=== PATIENT | male | born 1940 | race African-American/Black ===

== ENCOUNTER 2017-07-29 17:47 | Inpatient (IN) | payer MEDICARE, MEDICAID ==
[~2017-07-29] VITALS: Ht 175.3 cm; Wt 68.0 kg
[~2017-07-29 17:47] MED LIST: ATOR20TA PO; DOCU-150 PO; LOSA50TA3 PO
[2017-07-29 18:25] LABS: BASOPHILS % 0.5 % (0.0-2.0); EOSINOPHILS % 1.7 % (0.0-5.0); HEMATOCRIT. 50.6 % (42.0-52.0); HEMOGLOBIN. 17.3 g/dL (14.0-18.0); LYMPHOCYTES % 24.9 % (20.0-50.0); MEAN CORPUSCULAR HEMOGLOBIN 32.8 pg (28.0-32.0); MEAN CORPUSCULAR VOLUME 96.3 fL (80.0-94.0); MEAN PLATELET VOLUME 8.6 fl (7.4-10.4); MONOCYTES % 11.9 % (2.0-8.0); PLATELET 164 x1000/uL (130-400); RED BLOOD CELL COUNT 5.26 mill/uL (4.7-6.1); RED CELL DISTRIBUTION WIDTH 14.1 % (11.6-14.6)
[2017-07-29 18:32] LABS: INR 1.3; PROTHROMBIN TIME 13.4 sec (9.4-11.6)
[2017-07-29] MEDS ORDERED: SODIUM CHLORIDE 0.9% 500 ML IV ONE (18:32)
[2017-07-29 18:42] LABS: CHLORIDE 107 mEq/L (98-107); ETHANOL BLOOD < 10 mg/dL; TROPONIN I < 0.02 ng/mL (0.00-0.04)
[2017-07-29] MEDS ORDERED: LABETALOL 5MG/ML SYR 20 MG/4 ML SYRINGE IV NR (19:04)
[2017-07-29 20:00] LABS: CLARITY URINE CLOUDY (CLEAR); COLOR URINE YELLOW (YELLOW); KETONES URINE TRACE (NEGATIVE); LEUKOCYTE ESTERASE URINE TRACE (NEGATIVE); NITRITE URINE NEGATIVE (NEGATIVE); OCCULT BLOOD URINE NEGATIVE (NEGATIVE); PROTEIN URINE TRACE (NEGATIVE)
[2017-07-29 20:03] LABS: *AMPHETAMINES SCREEN URINE NEGATIVE (NEGATIVE); *BARBITURATES SCREEN URINE NEGATIVE (NEGATIVE); *BENZODIAZEPINES SCREEN URINE NEGATIVE (NEGATIVE); *COCAINE SCREEN URINE NEGATIVE (NEGATIVE); CANNABINOID URINE SCREEN NEGATIVE (NEGATIVE); METHADONE URINE SCREEN NEGATIVE (NEGATIVE); OPIATES URINE SCREEN NEGATIVE (NEGATIVE); PHENCYCLIDINE URINE SCREEN NEGATIVE (NEGATIVE)
[2017-07-29] MEDS ORDERED: CEFTRIAXONE 1 G PREMIX 50 ML IV SCH (20:45)
[2017-07-29] MEDS ORDERED: HYDRALAZINE 20MG/ML VIAL IV ONE (20:45)
[2017-07-29] MEDS ORDERED: MAGNESIUM CITRATE 300ML SOLUTION GT ONE (20:45)
[2017-07-30] VITALS (7 sets, daily range): BP systolic 106–141; BP diastolic 56–96
[2017-07-30] MEDS ORDERED: LACTULOSE 20G/30ML UDC PO PRN (02:45)
[2017-07-30] MEDS ORDERED: LACT10SO6 MT (03:05)
[2017-07-30] MEDS ORDERED: KEPP500 PO (03:05)
[2017-07-30] MEDS: IPRATROPIUM/ALBUTEROL 0.5-3(2.5)MG/3ML NEB HHN SCH ×3 (08:45→19:57)
[2017-07-30] MEDS ORDERED: MULTIVITAMINS,THER W-MINERALS TABLET PO SCH (09:00)
[2017-07-30] MEDS ORDERED: AMLODIPINE 10MG TABLET PO SCH (09:00)
[2017-07-30] MEDS ORDERED: LEVETIRACETAM 500MG TABLET PO SCH (09:00)
[2017-07-30] MEDS ORDERED: LOSARTAN POTASSIUM 100 MG TABLET PO SCH (09:00)
[2017-07-30] MEDS: DEXT 5%/0.45% NACL 1000ML 1,000 ML IV SCH (11:47)
[2017-07-30] MEDS ORDERED: LOSARTAN POTASSIUM 100 MG TABLET GT SCH (12:00)
[2017-07-30] MEDS ORDERED: MULTIVITAMINS,THER W-MINERALS TABLET GT SCH (12:00)
[2017-07-30] MEDS ORDERED: AMLODIPINE 10MG TABLET GT SCH (12:00)
[2017-07-30] MEDS ORDERED: ATORVASTATIN CALCIUM 20MG TABLET PO SCH (21:00)
[2017-07-30] MEDS: DOCUSATE SODIUM 250MG CAPSULE PO SCH (23:02)
[2017-07-30] MEDS: LEVETIRACETAM 500MG TABLET GT SCH (23:02)
[2017-07-30] MEDS: ATORVASTATIN CALCIUM 20MG TABLET GT SCH (23:02)
[2017-07-31] VITALS: BP 133/76
[2017-07-31] MEDS: IPRATROPIUM/ALBUTEROL 0.5-3(2.5)MG/3ML NEB HHN SCH ×4 (00:52→20:40)
[2017-07-31 04:00] VITALS: BP 140/84
[2017-07-31] MEDS: DEXT 5%/0.45% NACL 1000ML 1,000 ML IV SCH ×3 (05:10→21:29)
[2017-07-31 08:00] VITALS: BP 132/81
[2017-07-31] MEDS: MULTIVITAMINS,THER W-MINERALS TABLET GT SCH (09:44)
[2017-07-31] MEDS: LEVETIRACETAM 500MG TABLET GT SCH ×2 (09:44→21:15)
[2017-07-31] MEDS: LOSARTAN POTASSIUM 100 MG TABLET GT SCH (09:45)
[2017-07-31] MEDS: AMLODIPINE 10MG TABLET GT SCH (09:45)
[2017-07-31 12:00] VITALS: BP 132/72
[2017-07-31 16:00] VITALS: BP 133/75
[2017-07-31 20:00] VITALS: BP 131/86
[2017-07-31] MEDS: ATORVASTATIN CALCIUM 20MG TABLET GT SCH (21:15)
[2017-07-31] MEDS: DOCUSATE SODIUM 250MG CAPSULE PO SCH (21:15)
[2017-08-01] VITALS (7 sets, daily range): BP systolic 101–160; BP diastolic 62–92
[2017-08-01] MEDS: IPRATROPIUM/ALBUTEROL 0.5-3(2.5)MG/3ML NEB HHN SCH ×4 (00:34→21:06)
[2017-08-01] MEDS: LEVOFLOXACIN 250MG TABLET GT SCH ×2 (02:11→21:25)
[2017-08-01] MEDS: LOSARTAN POTASSIUM 100 MG TABLET GT SCH (09:20)
[2017-08-01] MEDS: MULTIVITAMINS,THER W-MINERALS TABLET GT SCH (09:21)
[2017-08-01] MEDS: LEVETIRACETAM 500MG TABLET GT SCH ×2 (09:21→21:25)
[2017-08-01] MEDS: AMLODIPINE 10MG TABLET GT SCH (09:21)
[2017-08-01] MEDS: DEXT 5%/0.45% NACL 1000ML 1,000 ML IV SCH (10:15)
[2017-08-01 10:26] LABS: BASOPHILS % 0.6 % (0.0-2.0); EOSINOPHILS % 2.5 % (0.0-5.0); HEMATOCRIT. 48.5 % (42.0-52.0); HEMOGLOBIN. 16.2 g/dL (14.0-18.0); LYMPHOCYTES % 25.6 % (20.0-50.0); MEAN CORPUSCULAR HEMOGLOBIN 32.4 pg (28.0-32.0); MEAN PLATELET VOLUME 9.1 fl (7.4-10.4); MONOCYTES % 13.2 % (2.0-8.0); NEUTROPHILS % 58.1 % (40.0-76.0); PLATELET 165 x1000/uL (130-400); RED CELL DISTRIBUTION WIDTH 14.5 % (11.6-14.6)
[2017-08-01 11:00] LABS: CHLORIDE 107 mEq/L (98-107)
[2017-08-01] MEDS: ATORVASTATIN CALCIUM 20MG TABLET GT SCH (21:25)
[2017-08-01] MEDS: DOCUSATE SODIUM 250MG CAPSULE PO SCH (21:25)
[2017-08-02] VITALS: BP 132/81
[2017-08-02] MEDS: IPRATROPIUM/ALBUTEROL 0.5-3(2.5)MG/3ML NEB HHN SCH ×4 (01:29→21:04)
[2017-08-02 04:00] VITALS: BP 149/77
[2017-08-02 08:00] VITALS: BP 116/67
[2017-08-02] MEDS: MULTIVITAMINS,THER W-MINERALS TABLET GT SCH (09:19)
[2017-08-02] MEDS: LOSARTAN POTASSIUM 100 MG TABLET GT SCH (09:19)
[2017-08-02] MEDS: LEVETIRACETAM 500MG TABLET GT SCH ×2 (09:19→22:11)
[2017-08-02] MEDS: AMLODIPINE 10MG TABLET GT SCH (09:20)
[2017-08-02] MEDS ORDERED: LACTULOSE 20G/30ML UDC PO PRN (09:45)
[2017-08-02 12:00] VITALS: BP 142/83
[2017-08-02] MEDS: ENOXAPARIN 40MG/0.4ML SYR SUBCUT SCH (12:45)
[2017-08-02 16:00] VITALS: BP 158/92
[2017-08-02 16:32] LABS: T4 FREE 1.13 ng/dL (0.76-1.46)
[2017-08-02 16:52] LABS: VITAMIN B12 SERUM 618 pg/mL (211-911)
[2017-08-02 16:53] LABS: FOLIC ACID (FOLATE) SERUM > 20.00 ng/mL (>5.38)
[2017-08-02 20:00] VITALS: BP 101/63
[2017-08-02] MEDS: ATORVASTATIN CALCIUM 20MG TABLET GT SCH (22:10)
[2017-08-02] MEDS: DOCUSATE SODIUM 250MG CAPSULE PO SCH (22:10)
[2017-08-02] MEDS: LEVOFLOXACIN 250MG TABLET GT SCH (22:11)
[2017-08-03] VITALS: BP 113/78
[2017-08-03] MEDS: IPRATROPIUM/ALBUTEROL 0.5-3(2.5)MG/3ML NEB HHN SCH ×4 (02:30→19:57)
[2017-08-03 04:00] VITALS: BP 120/70
[2017-08-03 08:00] VITALS: BP 106/71
[2017-08-03] MEDS: LOSARTAN POTASSIUM 100 MG TABLET GT SCH (09:00)
[2017-08-03] MEDS: AMLODIPINE 10MG TABLET GT SCH (09:00)
[2017-08-03] MEDS: LEVETIRACETAM 500MG TABLET GT SCH ×2 (09:04→21:35)
[2017-08-03] MEDS: MULTIVITAMINS,THER W-MINERALS TABLET GT SCH (09:04)
[2017-08-03] MEDS: ENOXAPARIN 40MG/0.4ML SYR SUBCUT SCH (09:05)
[2017-08-03] MEDS: CLOPIDOGREL 75MG TABLET PO SCH (09:05)
[2017-08-03 12:00] VITALS: BP 126/78
[2017-08-03 16:00] VITALS: BP 117/72
[2017-08-03 20:00] VITALS: BP 129/70
[2017-08-03] MEDS: LEVOFLOXACIN 250MG TABLET GT SCH (21:34)
[2017-08-03] MEDS: DOCUSATE SODIUM 250MG CAPSULE PO SCH (21:34)
[2017-08-03] MEDS: ATORVASTATIN CALCIUM 20MG TABLET GT SCH (21:35)
[2017-08-04] VITALS: BP 128/84
[2017-08-04] MEDS: IPRATROPIUM/ALBUTEROL 0.5-3(2.5)MG/3ML NEB HHN SCH ×4 (00:54→19:42)
[2017-08-04 04:00] VITALS: BP 105/63
[2017-08-04 08:00] VITALS: BP 137/84
[2017-08-04] MEDS: CLOPIDOGREL 75MG TABLET PO SCH (08:41)
[2017-08-04] MEDS: LEVETIRACETAM 500MG TABLET GT SCH ×2 (08:42→21:57)
[2017-08-04] MEDS: LOSARTAN POTASSIUM 100 MG TABLET GT SCH (08:42)
[2017-08-04] MEDS: MULTIVITAMINS,THER W-MINERALS TABLET GT SCH (08:42)
[2017-08-04] MEDS: AMLODIPINE 10MG TABLET GT SCH (08:42)
[2017-08-04] MEDS: ENOXAPARIN 40MG/0.4ML SYR SUBCUT SCH (10:00)
[2017-08-04 12:00] VITALS: BP 128/81
[2017-08-04 16:00] VITALS: BP 127/80
[2017-08-04 20:00] VITALS: BP 124/74
[2017-08-04] MEDS: LEVOFLOXACIN 250MG TABLET GT SCH (21:57)
[2017-08-04] MEDS: ATORVASTATIN CALCIUM 20MG TABLET GT SCH (21:57)
[2017-08-04] MEDS: DOCUSATE SODIUM 250MG CAPSULE PO SCH (21:57)
[2017-08-05] MEDS: IPRATROPIUM/ALBUTEROL 0.5-3(2.5)MG/3ML NEB HHN SCH ×3 (01:34→13:09)
[2017-08-05 04:00] VITALS: BP 120/74
[2017-08-05 08:00] VITALS: BP 96/39
[2017-08-05] MEDS: AMLODIPINE 10MG TABLET GT SCH (09:00)
[2017-08-05] MEDS: LOSARTAN POTASSIUM 100 MG TABLET GT SCH (09:00)
[2017-08-05] MEDS: CLOPIDOGREL 75MG TABLET PO SCH (09:39)
[2017-08-05] MEDS: ENOXAPARIN 40MG/0.4ML SYR SUBCUT SCH (09:39)
[2017-08-05] MEDS: MULTIVITAMINS,THER W-MINERALS TABLET GT SCH (09:39)
[2017-08-05] MEDS: LEVETIRACETAM 500MG TABLET GT SCH (09:41)
[2017-08-05] MEDS ORDERED: LOSA100T14 PO (11:47)
[2017-08-05] MEDS ORDERED: CLOP75TA16 GT (11:54)
[2017-08-05] MEDS ORDERED: AMLO10TA4 GT (11:56)
[2017-08-05 12:00] VITALS: BP 107/64
[2017-08-05 16:12] VITALS: BP 112/78
== END 2017-08-05 17:30 | disposition home or self-care (01) | DRG 64 ==
LOC: ER 17:47 → 6EST 21:04 → EDBEDREQ 21:07 → EDBEDREQTM 21:07 → EDBEDREQSVC 21:08 → ENRESERV 22:11
PROVIDERS: ADMIT Internal Medicine; ATTEND Internal Medicine
DX: I63.9 Cerebral infarction, unspecified (principal); G93.40 Encephalopathy, unspecified; L89.90 Pressure ulcer of unspecified site, unspecified stage; I69.954 Hemiplegia and hemiparesis following unspecified cerebrovascular disease affecting left non-dominant side; N39.0 Urinary tract infection, site not specified; F03.90 Unspecified dementia, unspecified severity, without behavioral disturbance, psychotic disturbance, mood disturbance, and anxiety; J44.9 Chronic obstructive pulmonary disease, unspecified; G40.909 Epilepsy, unspecified, not intractable, without status epilepticus; I11.9 Hypertensive heart disease without heart failure; E78.00 Pure hypercholesterolemia, unspecified; F32.9 Major depressive disorder, single episode, unspecified; M51.36 Other intervertebral disc degeneration, lumbar region; N40.0 Benign prostatic hyperplasia without lower urinary tract symptoms; Z93.1 Gastrostomy status; Z79.899 Other long term (current) drug therapy; Z99.3 Dependence on wheelchair
CPT/HCPCS: 36415; 51702; 70450; 70544; 70551; 71045; 74018; 74176; 80048; 80053; 80061; 80305; 81003; 82607; 82746; 82962; 83036; 83605; 83690; 83880; 84439; 84443; 84481; 84484; 85025; 85610; 87086; 92523; 92610; 93005; 93306; 93880; 93970; 94640; 96361; 96365; 96375; 97162; 97167; 99285; G0482; J0360; J0696; J1650; J3490; J7040; J7060; J7620; A4315

== ENCOUNTER 2017-08-20 09:39 | Inpatient (IN) | payer MEDICARE, MEDICAID ==
[~2017-08-20] VITALS: Ht 180.3 cm; Wt 89.8 kg
[2017-08-20] VITALS (43 sets, daily range): BP systolic 76–165; BP diastolic 42–100
[~2017-08-20 09:39] MED LIST changes: +AMLO10TA4 GT; +CLOP75TA16 GT; -DOCU-150 PO; +KEPP500 PO; +LOSA100T14 PO; -LOSA50TA3 PO
[2017-08-20] MEDS ORDERED: NOREPINEPHRINE 4 MG in DEXT 5% WATER 250 ML IV STA ×2 (09:51→11:42)
[2017-08-20] MEDS ORDERED: ACETAMINOPHEN 650MG SUPP PR STA (09:51)
[2017-08-20] MEDS ORDERED: SODIUM CHLORIDE 0.9% 1,000 ML IV ONE ×3 (09:51→12:10)
[2017-08-20] MEDS ORDERED: LEVOFLOXACIN 750MG PREMIX 150 ML IV ONE (10:00)
[2017-08-20] MEDS ORDERED: PIPERACILLIN/TAZ 3.375G PREMIX 50 ML IV ONE (10:00)
[2017-08-20] MEDS ORDERED: SUCCINYLCHOLINE CHLORIDE 200MG/10ML VIAL IV ONE ×2 (10:15→11:32)
[2017-08-20] MEDS ORDERED: ETOMIDATE 2MG/ML 10ML VIAL IV ONE ×2 (10:15→11:32)
[2017-08-20] MEDS ORDERED: PROPOFOL 10MG/ML 100ML 100 ML IV ONE (10:15)
[2017-08-20] MEDS ORDERED: MIDAZOLAM HCL 50 MG in DEXTROSE 5% WATER 40 ML IV ONE (10:15)
[2017-08-20 10:24] LABS: BG BASE EXCESS -10.1 mmol/L (-2.0-2.0); BG CARBOXYHEMOGLOBIN 0.6 % (0.5-1.5); BG DEOXYHEMOGLOBIN 2.8 % (0.0-5.0); BG HCO3 ACT 19.2 mmol/L (22.0-26.0); BG METHEMOGLOBIN 0.7 % (0.0-1.5); BG OXYGEN SATURATION 97.2 % (92.0-98.5); BG OXYHEMOGLOBIN 95.9 % (94.0-97.0); BG PCO2 55.6 mmHg (35.0-45.0); BG PH 7.156 (7.350-7.450); BG PO2 117.8 mmHg (75.0-100.0); BG SAMPLE SITE RIGHT RADIAL; BG TIDAL VOLUME(mL) 450 mL; BG TOTAL HEMOGLOBIN 16.1 g/dL (12.0-18.0); BG VENT MODE VENT - A/C; BG VENT RATE 14 set
[2017-08-20 10:26] LABS: BASOPHILS % 0.2 % (0.0-2.0); HEMATOCRIT. 48.4 % (42.0-52.0); HEMOGLOBIN. 15.6 g/dL (14.0-18.0); LYMPHOCYTES % 7.9 % (20.0-50.0); MEAN CORPUSCULAR HEMOGLOBIN 32.3 pg (28.0-32.0); MEAN CORPUSCULAR VOLUME 100.5 fL (80.0-94.0); MEAN PLATELET VOLUME 8.9 fl (7.4-10.4); MONOCYTES % 5.9 % (2.0-8.0); PLATELET 386 x1000/uL (130-400); RED BLOOD CELL COUNT 4.82 mill/uL (4.7-6.1)
[2017-08-20 10:33] LABS: INR 1.4; PARTIAL THROMBOPLASTIN TIME 26.3 sec (23.4-31.0); PROTHROMBIN TIME 14.5 sec (9.4-11.6)
[2017-08-20 10:36] LABS: CHLORIDE 115 mEq/L (98-107)
[2017-08-20] MEDS ORDERED: LIDOCAINE HCL 1% 20ML VIAL (Pyxis) INJ ONE (10:56)
[2017-08-20] MEDS ORDERED: MIDAZOLAM HCL 2 MG/2 ML VIAL IV ONE (11:00)
[2017-08-20] MEDS ORDERED: PHENYLEPHRINE 40 MG in DEXT 5% WATER 246 ML IV STA ×2 (11:31→12:16)
[2017-08-20] MEDS ORDERED: STERILE WATER FOR INJECTION 10ML VIAL ONE (11:32)
[2017-08-20] MEDS ORDERED: VECURONIUM BROMIDE 10 MG/VIAL IV ONE ×2 (11:32→13:15)
[2017-08-20 11:43] LABS: KETONES URINE NEGATIVE (NEGATIVE); LEUKOCYTE ESTERASE URINE 2+ (NEGATIVE); NITRITE URINE NEGATIVE (NEGATIVE); OCCULT BLOOD URINE 1+ (NEGATIVE); PH URINE 6.5 (4.5-8.0); PROTEIN URINE 2+ (NEGATIVE); UROBILINOGEN URINE >=8.0 E.U./dL (0.2-1.0)
[2017-08-20 11:44] LABS: CLARITY URINE TURBID (CLEAR); COLOR URINE DARK YELLOW (YELLOW)
[2017-08-20] MEDS ORDERED: IBUPROFEN 100MG/5ML UDC GT ONE (11:45)
[2017-08-20] MEDS ORDERED: VANCOMYCIN 1 G PREMIX 200 ML IV SCH ×2 (12:15→12:30)
[2017-08-20 12:33] LABS: BG BASE EXCESS -10.2 mmol/L (-2.0-2.0); BG CARBOXYHEMOGLOBIN 0.6 % (0.5-1.5); BG DEOXYHEMOGLOBIN 1.5 % (0.0-5.0); BG HCO3 ACT 13.6 mmol/L (22.0-26.0); BG METHEMOGLOBIN 0.5 % (0.0-1.5); BG OXYGEN SATURATION 98.5 % (92.0-98.5); BG OXYHEMOGLOBIN 97.4 % (94.0-97.0); BG PCO2 25.9 mmHg (35.0-45.0); BG PH 7.338 (7.350-7.450); BG PO2 130.3 mmHg (75.0-100.0); BG SAMPLE SITE RIGHT RADIAL; BG TIDAL VOLUME(mL) 450 mL; BG TOTAL HEMOGLOBIN 15.3 g/dL (12.0-18.0); BG VENT MODE VENT - A/C; BG VENT RATE 14 set
[2017-08-20] MEDS ORDERED: VASOPRESSIN 10 UNIT in SODIUM CHLORIDE 0.9% 99.5 ML IV STA (12:59)
[2017-08-20] MEDS ORDERED: HYDROCORTISONE SOD SUCCINATE 100 MG/2 ML VIAL IV ONE (13:00)
[2017-08-20] MEDS ORDERED: SODIUM BICARBONATE 8.4% 1 MEQ/ML 50ML SYR IV ONE (13:15)
[2017-08-20] MEDS ORDERED: SODIUM BICARBONATE 8.4% 1 MEQ/ML 50ML SYR IV NR (15:15)
[2017-08-20] MEDS ORDERED: NOREPINEPHRINE 4 MG in DEXT 5% WATER 246 ML IV PRN (15:30)
[2017-08-20] MEDS ORDERED: IPRATROPIUM/ALBUTEROL 0.5-3(2.5)MG/3ML NEB HHN PRN (15:30)
[2017-08-20] MEDS ORDERED: VASOPRESSIN 10 UNIT in SODIUM CHLORIDE 0.9% 99.5 ML IV PRN (15:30)
[2017-08-20] MEDS ORDERED: PROPOFOL 10MG/ML 100ML 100 ML IV PRN (15:50)
[2017-08-20] MEDS ORDERED: SODIUM CHLORIDE 0.9% 500 ML IV NR (16:00)
[2017-08-20] MEDS ORDERED: SODIUM CHLORIDE 0.9% 500 ML IV ONE (16:15)
[2017-08-20] MEDS ORDERED: PHENYLEPHRINE 40 MG in DEXT 5% WATER 246 ML IV PRN (16:30)
[2017-08-20] MEDS ORDERED: PHENYLEPHRINE 10 MG in DEXT 5% WATER 249 ML IV PRN (16:30)
[2017-08-20] MEDS ORDERED: DOPAMINE 400MG PREMIX 250 ML IV PRN (16:30)
[2017-08-20] MEDS ORDERED: SODIUM BICARBONATE 100 MEQ in DEXTROSE 5% WATER 1,000 ML IV SCH (17:00)
[2017-08-20] MEDS: NOREPINEPHRINE 16 MG in DEXT 5% WATER 234 ML IV PRN (18:21)
[2017-08-20] MEDS: PANTOPRAZOLE SODIUM 40 MG/VIAL IV SCH (18:23)
[2017-08-20] MEDS: PIPERACILLIN/TAZ 3.375G PREMIX 50 ML IV SCH (18:23)
[2017-08-20] MEDS ORDERED: DEXTROSE 5% WATER 1,000 ML IV SCH (19:00)
[2017-08-20] MEDS ORDERED: DEXT 5% WATER 500 ML IV ONE (19:00)
[2017-08-20] MEDS: IPRATROPIUM/ALBUTEROL 0.5-3(2.5)MG/3ML NEB HHN SCH (20:06)
[2017-08-20] MEDS: LEVETIRACETAM 500MG TABLET GT SCH (21:50)
[2017-08-20] MEDS: CITRIC ACID/SODIUM CITRATE SOLN 30ML UDC GT SCH (21:50)
[2017-08-20] MEDS ORDERED: PIPERACILLIN/TAZOBACTAM 2.25 G in DEXTROSE 5% WATER 50 ML IV SCH (22:00)
[2017-08-21] VITALS (112 sets, daily range): BP systolic 71–141; BP diastolic 25–99
[2017-08-21] MEDS: IPRATROPIUM/ALBUTEROL 0.5-3(2.5)MG/3ML NEB HHN SCH ×6 (00:09→20:38)
[2017-08-21] MEDS ORDERED: DEXTROSE 50% WATER 50ML SYRINGE IV PRN (00:15)
[2017-08-21] MEDS ORDERED: DEXT 5%/0.45% NACL 1000ML 1,000 ML IV SCH (00:15)
[2017-08-21] MEDS: PIPERACILLIN/TAZ 3.375G PREMIX 50 ML IV SCH ×3 (01:48→17:50)
[2017-08-21 05:46] LABS: HEMATOCRIT. 45.5 % (42.0-52.0); HEMOGLOBIN. 14.9 g/dL (14.0-18.0); MEAN CORPUSCULAR HEMOGLOBIN 32.3 pg (28.0-32.0); MEAN CORPUSCULAR VOLUME 98.3 fL (80.0-94.0); PLATELET 356 x1000/uL (130-400); RED BLOOD CELL COUNT 4.63 mill/uL (4.7-6.1); RED CELL DISTRIBUTION WIDTH 14.8 % (11.6-14.6)
[2017-08-21] MEDS: BLOOD SUGAR DIAGNOSTIC STRIP TEST SCH ×3 (05:47→17:49)
[2017-08-21] MEDS: CITRIC ACID/SODIUM CITRATE SOLN 30ML UDC GT SCH (05:52)
[2017-08-21] MEDS: NOREPINEPHRINE 16 MG in DEXT 5% WATER 234 ML IV PRN ×2 (05:53→18:48)
[2017-08-21] MEDS: INSULIN LISPRO 100 UNITS/ML SUBCUT SCH ×3 (05:53→17:50)
[2017-08-21 07:23] LABS: PLATELET ESTIMATE NORMAL
[2017-08-21 07:43] LABS: BG BASE EXCESS -5.4 mmol/L (-2.0-2.0); BG CARBOXYHEMOGLOBIN 0.5 % (0.5-1.5); BG DEOXYHEMOGLOBIN 1.8 % (0.0-5.0); BG HCO3 ACT 17.6 mmol/L (22.0-26.0); BG METHEMOGLOBIN 0.4 % (0.0-1.5); BG OXYGEN SATURATION 98.2 % (92.0-98.5); BG OXYHEMOGLOBIN 97.3 % (94.0-97.0); BG PCO2 28.5 mmHg (35.0-45.0); BG PH 7.408 (7.350-7.450); BG PO2 106.1 mmHg (75.0-100.0); BG SAMPLE SITE RIGHT RADIAL; BG TIDAL VOLUME(mL) 450 mL; BG TOTAL HEMOGLOBIN 16.2 g/dL (12.0-18.0); BG VENT MODE VENT - A/C; BG VENT RATE 16 set
[2017-08-21] MEDS: LEVETIRACETAM 500MG TABLET GT SCH ×2 (09:37→20:45)
[2017-08-21] MEDS: PANTOPRAZOLE SODIUM 40 MG/VIAL IV SCH (09:37)
[2017-08-21] MEDS: INSULIN GLARGINE UD 100 UNITS/ML SYR SUBCUT SCH (09:38)
[2017-08-21] MEDS ORDERED: PROPOFOL 10MG/ML 100ML 100 ML IV PRN (10:00)
[2017-08-21] MEDS ORDERED: VANCOMYCIN 500 MG PREMIX 100 ML IV SCH (10:00)
[2017-08-21] MEDS ORDERED: VANCOMYCIN 750 MG PREMIX 150 ML IV SCH (11:00)
[2017-08-21] MEDS: SODIUM BICARBONATE 50 MEQ in SODIUM CHLORIDE 0.45% 1,000 ML IV SCH (14:40)
[2017-08-21] MEDS ORDERED: PHENYLEPHRINE 80 MG in DEXT 5% WATER 492 ML IV ONE (20:00)
[2017-08-21] MEDS ORDERED: SODIUM CHLORIDE 0.9% 500 ML IV NR (20:17)
[2017-08-21] MEDS: PHENYLEPHRINE 80 MG in DEXT 5% WATER 492 ML IV PRN (23:13)
[2017-08-22] VITALS (103 sets, daily range): BP systolic 75–160; BP diastolic 34–109
[2017-08-22] MEDS: IPRATROPIUM/ALBUTEROL 0.5-3(2.5)MG/3ML NEB HHN SCH ×6 (00:46→20:40)
[2017-08-22] MEDS: PIPERACILLIN/TAZ 3.375G PREMIX 50 ML IV SCH (02:10)
[2017-08-22] MEDS: NOREPINEPHRINE 32 MG in DEXT 5% WATER 468 ML IV PRN (05:22)
[2017-08-22 05:34] LABS: HEMATOCRIT. 45.6 % (42.0-52.0); MEAN CORPUSCULAR VOLUME 97.3 fL (80.0-94.0); MEAN PLATELET VOLUME 9.6 fl (7.4-10.4); PLATELET 293 x1000/uL (130-400); RED BLOOD CELL COUNT 4.68 mill/uL (4.7-6.1); RED CELL DISTRIBUTION WIDTH 14.6 % (11.6-14.6)
[2017-08-22] MEDS: BLOOD SUGAR DIAGNOSTIC STRIP TEST SCH ×4 (05:45→17:27)
[2017-08-22] MEDS: INSULIN LISPRO 100 UNITS/ML SUBCUT SCH ×4 (05:48→17:54)
[2017-08-22 05:56] LABS: CHLORIDE 106 mEq/L (98-107)
[2017-08-22] MEDS: SODIUM BICARBONATE 50 MEQ in SODIUM CHLORIDE 0.45% 1,000 ML IV SCH (06:52)
[2017-08-22] MEDS ORDERED: PROPOFOL 10MG/ML 100ML 100 ML IV PRN (07:09)
[2017-08-22 08:31] LABS: BG BASE EXCESS -7.9 mmol/L (-2.0-2.0); BG CARBOXYHEMOGLOBIN 0.2 % (0.5-1.5); BG DEOXYHEMOGLOBIN 0.5 % (0.0-5.0); BG FRACTION INSPIRED OXYGEN 60; BG HCO3 ACT 15.5 mmol/L (22.0-26.0); BG METHEMOGLOBIN 0.5 % (0.0-1.5); BG OXYGEN SATURATION 99.5 % (92.0-98.5); BG OXYHEMOGLOBIN 98.8 % (94.0-97.0); BG PCO2 27.2 mmHg (35.0-45.0); BG PH 7.374 (7.350-7.450); BG PO2 230.2 mmHg (75.0-100.0); BG SAMPLE SITE RIGHT RADIAL; BG TIDAL VOLUME(mL) 450 mL; BG TOTAL HEMOGLOBIN 15.2 g/dL (12.0-18.0); BG VENT MODE VENT - A/C; BG VENT RATE 16 set
[2017-08-22] MEDS: LEVETIRACETAM 500MG TABLET GT SCH ×3 (09:00→22:07)
[2017-08-22] MEDS ORDERED: MORPHINE SULFATE 250 MG in DEXT 5% WATER 240 ML IV PRN (09:00)
[2017-08-22] MEDS ORDERED: ACETYLCYSTEINE 100MG/ML 10% VIAL 4ML INH SCH (12:00)
[2017-08-22] MEDS ORDERED: PIPERACILLIN/TAZ 3.375G PREMIX 50 ML IV SCH (12:00)
[2017-08-22 12:02] LABS: PLATELET ESTIMATE NORMAL
[2017-08-22] MEDS: INSULIN GLARGINE UD 100 UNITS/ML SYR SUBCUT SCH (12:42)
[2017-08-22] MEDS: LACTOBACILLUS GG CAPSULE PO SCH (12:42)
[2017-08-22] MEDS: ACETAMINOPHEN 650MG/20.3ML UDC PO PRN (13:15)
[2017-08-22] MEDS ORDERED: VANCOMYCIN 1 G PREMIX 200 ML IV NR (14:00)
[2017-08-22] MEDS: PIPERACILLIN/TAZOBACTAM 2.25 G in SODIUM CHLORIDE 0.9% 50 ML IV SCH ×2 (14:08→22:08)
[2017-08-22] MEDS: PHENYLEPHRINE 80 MG in DEXT 5% WATER 492 ML IV PRN (14:09)
[2017-08-23] VITALS (90 sets, daily range): BP systolic 91–153; BP diastolic 46–111
[2017-08-23] MEDS: IPRATROPIUM/ALBUTEROL 0.5-3(2.5)MG/3ML NEB HHN SCH ×7 (00:51→23:50)
[2017-08-23] MEDS: PIPERACILLIN/TAZOBACTAM 2.25 G in SODIUM CHLORIDE 0.9% 50 ML IV SCH ×3 (05:15→22:47)
[2017-08-23] MEDS: INSULIN LISPRO 100 UNITS/ML SUBCUT SCH ×4 (05:18→17:32)
[2017-08-23] MEDS: SODIUM BICARBONATE 50 MEQ in SODIUM CHLORIDE 0.45% 1,000 ML IV SCH ×2 (05:22→17:33)
[2017-08-23] MEDS: NOREPINEPHRINE 32 MG in DEXT 5% WATER 468 ML IV PRN (05:23)
[2017-08-23] MEDS: BLOOD SUGAR DIAGNOSTIC STRIP TEST SCH ×4 (06:00→17:31)
[2017-08-23] MEDS: PANTOPRAZOLE SODIUM 40 MG/VIAL IV SCH (09:21)
[2017-08-23] MEDS: LEVETIRACETAM 500MG TABLET GT SCH ×2 (09:21→22:47)
[2017-08-23] MEDS: INSULIN GLARGINE UD 100 UNITS/ML SYR SUBCUT SCH (09:22)
[2017-08-23] MEDS: LACTOBACILLUS GG CAPSULE PO SCH (09:23)
[2017-08-23 09:31] LABS: BG BASE EXCESS -6.1 mmol/L (-2.0-2.0); BG CARBOXYHEMOGLOBIN 0.3 % (0.5-1.5); BG FRACTION INSPIRED OXYGEN 40; BG HCO3 ACT 16.4 mmol/L (22.0-26.0); BG METHEMOGLOBIN 0.7 % (0.0-1.5); BG PCO2 25.3 mmHg (35.0-45.0); BG PH 7.429 (7.350-7.450); BG PO2 107.5 mmHg (75.0-100.0); BG SAMPLE SITE RIGHT RADIAL; BG TIDAL VOLUME(mL) 450 mL; BG TOTAL HEMOGLOBIN 14.3 g/dL (12.0-18.0); BG VENT MODE VENT - A/C; BG VENT RATE 16 set
[2017-08-23] MEDS: ACETAMINOPHEN 650MG/20.3ML UDC PO PRN (12:33)
[2017-08-23] MEDS: MORPHINE SULFATE 4 MG/ML CPJ (NOT FOR IM USE) IV PRN (19:13)
[2017-08-24] VITALS (72 sets, daily range): BP systolic 71–126; BP diastolic 35–81
[2017-08-24] MEDS: BLOOD SUGAR DIAGNOSTIC STRIP TEST SCH ×2 (00:24→05:24)
[2017-08-24] MEDS: IPRATROPIUM/ALBUTEROL 0.5-3(2.5)MG/3ML NEB HHN SCH ×3 (03:20→13:20)
[2017-08-24] MEDS: INSULIN LISPRO 100 UNITS/ML SUBCUT SCH ×2 (05:24)
[2017-08-24] MEDS: PIPERACILLIN/TAZOBACTAM 2.25 G in SODIUM CHLORIDE 0.9% 50 ML IV SCH (05:39)
[2017-08-24] MEDS: LEVETIRACETAM 500MG TABLET GT SCH (08:15)
[2017-08-24] MEDS: PANTOPRAZOLE SODIUM 40 MG/VIAL IV SCH (08:15)
[2017-08-24] MEDS: LACTOBACILLUS GG CAPSULE PO SCH (08:15)
[2017-08-24] MEDS: MORPHINE SULFATE 4 MG/ML CPJ (NOT FOR IM USE) IV PRN (08:16)
[2017-08-24 08:19] LABS: BG BASE EXCESS -7.2 mmol/L (-2.0-2.0); BG CARBOXYHEMOGLOBIN 0.2 % (0.5-1.5); BG DEOXYHEMOGLOBIN 2.1 % (0.0-5.0); BG FRACTION INSPIRED OXYGEN 40; BG HCO3 ACT 15.7 mmol/L (22.0-26.0); BG METHEMOGLOBIN 0.3 % (0.0-1.5); BG OXYGEN SATURATION 97.9 % (92.0-98.5); BG OXYHEMOGLOBIN 97.4 % (94.0-97.0); BG PCO2 25.4 mmHg (35.0-45.0); BG PO2 105.9 mmHg (75.0-100.0); BG SAMPLE SITE RIGHT RADIAL; BG TIDAL VOLUME(mL) 400 mL; BG TOTAL HEMOGLOBIN 13.1 g/dL (12.0-18.0); BG VENT MODE VENT - A/C; BG VENT RATE 14 set
[2017-08-24 09:44] LABS: HEMATOCRIT. 38.5 % (42.0-52.0); HEMOGLOBIN. 13.1 g/dL (14.0-18.0); MEAN CORPUSCULAR HEMOGLOBIN 32.9 pg (28.0-32.0); MEAN PLATELET VOLUME 10.3 fl (7.4-10.4); PLATELET 211 x1000/uL (130-400); RED BLOOD CELL COUNT 3.97 mill/uL (4.7-6.1); RED CELL DISTRIBUTION WIDTH 14.5 % (11.6-14.6)
[2017-08-24] MEDS ORDERED: MORPHINE SULFATE 250 MG in DEXT 5% WATER 240 ML IV PRN (10:30)
[2017-08-24 11:09] LABS: PLATELET ESTIMATE NORMAL
[2017-08-24] MEDS: MORPHINE SULFATE 250 MG in SODIUM CHLORIDE 0.9% 240 ML IV PRN (12:33)
[2017-08-25] VITALS: BP 54/37
[2017-08-25 04:00] VITALS: BP 71/36
[2017-08-25 08:00] VITALS: BP 85/41
[2017-08-25 12:00] VITALS: BP 89/52
[2017-08-25] MEDS: MORPHINE SULFATE 250 MG in SODIUM CHLORIDE 0.9% 240 ML IV PRN (12:08)
[2017-08-25 16:00] VITALS: BP 90/50
[2017-08-25] MEDS ORDERED: ACETAMINOPHEN 650MG/20.3ML UDC GT PRN (19:45)
[2017-08-25 20:00] VITALS: BP 62/29
[2017-08-26] VITALS: BP 53/22
[2017-08-26 04:00] VITALS: BP 52/25
[2017-08-26] MEDS: MORPHINE SULFATE 250 MG in SODIUM CHLORIDE 0.9% 240 ML IV PRN (04:57)
[2017-08-26 08:00] VITALS: BP 62/29
[2017-08-26 20:00] VITALS: BP 66/31
[2017-08-27] VITALS: BP 64/32
[2017-08-27 04:00] VITALS: BP 64/32
[2017-08-27 08:00] VITALS: BP 62/36
[2017-08-27 11:00] VITALS: BP 65/38
[2017-08-27 16:00] VITALS: BP 59/36
[2017-08-27] MEDS: MORPHINE SULFATE 250 MG in SODIUM CHLORIDE 0.9% 240 ML IV PRN (18:15)
[2017-08-27 20:00] VITALS: BP 64/38
[2017-08-27] MEDS: IPRATROPIUM/ALBUTEROL 0.5-3(2.5)MG/3ML NEB HHN SCH (20:57)
[2017-08-28] VITALS: BP 51/28
[2017-08-28] MEDS: IPRATROPIUM/ALBUTEROL 0.5-3(2.5)MG/3ML NEB HHN SCH ×3 (01:01→09:31)
[2017-08-28 04:00] VITALS: BP 53/32
[2017-08-28] MEDS: MORPHINE SULFATE 250 MG in SODIUM CHLORIDE 0.9% 240 ML IV PRN (05:51)
[2017-08-28 08:00] VITALS: BP 55/31
[2017-08-28 12:00] VITALS: BP 0/17
== END 2017-08-28 13:10 | disposition expired | DRG 870 ==
LOC: ER 09:49 → MICUSO 12:18 → EDBEDREQ 12:20 → ENRESERV 13:31 → 6EST 08-24 21:29
PROVIDERS: ADMIT Internal Medicine; ATTEND Internal Medicine
PROC: 5A1955Z Respiratory Ventilation, Greater than 96 Consecutive Hours (ICD-10-PCS; principal; 2017-08-20)
PROC: 0BH17EZ Insertion of Endotracheal Airway into Trachea, Via Natural or Artificial Opening (ICD-10-PCS; 2017-08-20)
PROC: 02HV33Z Insertion of Infusion Device into Superior Vena Cava, Percutaneous Approach (ICD-10-PCS; 2017-08-20)
PROC: B548ZZA Ultrasonography of Superior Vena Cava, Guidance (ICD-10-PCS; 2017-08-20)
DX: A41.9 Sepsis, unspecified organism (principal); I21.4 Non-ST elevation (NSTEMI) myocardial infarction; I63.9 Cerebral infarction, unspecified; I46.9 Cardiac arrest, cause unspecified; E43 Unspecified severe protein-calorie malnutrition; J96.01 Acute respiratory failure with hypoxia; N17.0 Acute kidney failure with tubular necrosis; R65.21 Severe sepsis with septic shock; G93.40 Encephalopathy, unspecified; J15.212 Pneumonia due to Methicillin resistant Staphylococcus aureus; R13.10 Dysphagia, unspecified; D68.9 Coagulation defect, unspecified; I13.0 Hypertensive heart and chronic kidney disease with heart failure and stage 1 through stage 4 chronic kidney disease, or unspecified chronic kidney disease; N39.0 Urinary tract infection, site not specified; E87.0 Hyperosmolality and hypernatremia; I48.92 Unspecified atrial flutter; J44.0 Chronic obstructive pulmonary disease with (acute) lower respiratory infection; I69.354 Hemiplegia and hemiparesis following cerebral infarction affecting left non-dominant side; D64.9 Anemia, unspecified; E78.5 Hyperlipidemia, unspecified; I50.9 Heart failure, unspecified; E87.5 Hyperkalemia; F03.90 Unspecified dementia, unspecified severity, without behavioral disturbance, psychotic disturbance, mood disturbance, and anxiety; G40.909 Epilepsy, unspecified, not intractable, without status epilepticus; N18.9 Chronic kidney disease, unspecified; Z51.5 Encounter for palliative care; Z66 Do not resuscitate; Z86.718 Personal history of other venous thrombosis and embolism; I25.2 Old myocardial infarction; Z87.891 Personal history of nicotine dependence; Z93.1 Gastrostomy status; Z79.899 Other long term (current) drug therapy; Z68.27 Body mass index [BMI] 27.0-27.9, adult
CPT/HCPCS: 31500; 36415; 36569; 36600; 70450; 71045; 76937; 80048; 80053; 80202; 81003; 82375; 82805; 82962; 83036; 83605; 83690; 83880; 84478; 84484; 85025; 85610; 85730; 86850; 86900; 87040; 87070; 87077; 87086; 87493; 87804; 93005; 93306; 93970; 94002; 94003; 94640; 96365; 96366; 96368; 96375; 99291; A4216; A6261; C1725; C9113; J0330; J1720; J1815; J1956; J2250; J2270; J2274; J2370; J2543; J3370; J3490; J7030; J7040; J7050; J7060; J7070; J7608; J7620; A4315